=== PATIENT | male | born 1990 | race Caucasian/White ===

== ENCOUNTER 2017-03-30 17:12 | Emergency (ER) | payer MEDICAID ==
[~2017-03-30] VITALS: Ht 193 cm; Wt 99.8 kg
[2017-03-30 17:15] VITALS: BP 141/89
[2017-03-30] MEDS ORDERED: HYDROCODONE/APAP 5/325MG 1 EACH TABLET ONE (17:45)
[2017-03-30] MEDS ORDERED: ONDANSETRON 4 MG TAB.RAPDIS ONE (17:45)
[2017-03-30] MEDS ORDERED: oxyCODONE/APAP (5/325 MG) 1 UDTAB TABLET ONE (17:49)
--- NOTE | 2017-03-30 17:52 | NUR ---
WITNESSED WASTE HYDROCODONE 5-325 2 TABS WITH GAIL HIGGINS. PHARMACY AWARE
[2017-03-30] MEDS ORDERED: oxyCODONE/APAP (5/325 MG) 1 UDTAB TABLET PO ONE (18:00)
[2017-03-30] MEDS ORDERED: ONDANSETRON 4 MG TAB.RAPDIS SL ONE (18:00)
== END 2017-03-30 19:23 | disposition home or self-care (01) ==
LOC: ER 17:17
DX: S90.32XA Contusion of left foot, initial encounter (principal); F17.210 Nicotine dependence, cigarettes, uncomplicated; V28.4XXA Motorcycle driver injured in noncollision transport accident in traffic accident, initial encounter; Y93.89 Activity, other specified; Y92.413 State road as the place of occurrence of the external cause; Y99.8 Other external cause status
CPT/HCPCS: 73630; 99284; 99406; A4606; Q0162; Z7610